=== PATIENT | female | born 1985 | race Caucasian/White ===

== ENCOUNTER 2019-06-14 21:56 | Emergency (ER) | payer MEDICAID ==
[~2019-06-14] VITALS: Ht 160 cm; Wt 69.0 kg
[2019-06-15] MEDS ORDERED: SODIUM CHLORIDE 0.9% 1,000 ML IV ONE (00:57)
[2019-06-15 01:16] LABS: BASOPHILS % 0.8 % (0.0-2.0); HEMATOCRIT. 30.1 % (36.0-48.0); LYMPHOCYTES % 36.9 % (20.0-50.0); MEAN CORPUSCULAR HEMOGLOBIN 29.6 pg (28.0-32.0); MEAN CORPUSCULAR VOLUME 88.9 fL (81.0-99.0); MEAN PLATELET VOLUME 7.4 fl (7.4-10.4); MONOCYTES % 7.6 % (2.0-8.0); NEUTROPHILS % 51.7 % (40.0-76.0); PLATELET 469 x1000/uL (130-400); RED BLOOD CELL COUNT 3.38 mill/uL (4.2-5.4)
[2019-06-15 01:23] LABS: CHLORIDE 110 mEq/L (98-107)
[2019-06-15 01:33] LABS: B-HCG QUANTITATIVE 245 mIU/mL (<3)
[2019-06-15] MEDS ORDERED: ONDANSETRON HCL 4MG/2ML INJ IV ONE (04:15)
[2019-06-15 05:10] VITALS: BP 95/58
== END 2019-06-15 06:17 | disposition home or self-care (01) ==
LOC: ER 22:05
DX: O03.9 Complete or unspecified spontaneous abortion without complication (principal); Z98.890 Other specified postprocedural states
CPT/HCPCS: 36415; 76801; 76817; 80048; 84702; 85025; 86850; 86900; 86901; 96374; 99284; J2405; J7030

== ENCOUNTER 2022-06-05 17:18 | Emergency (ER) | payer BC ==
[~2022-06-05] VITALS: Ht 160 cm; Wt 79.0 kg
[~2022-06-05 17:18] MED LIST: FERR325T6 MT; NORE-126 MT; ONDA4TAB11 PO
[2022-06-05 18:01] VITALS: BP 116/63
[2022-06-05 20:41] LABS: BASOPHILS % 0.8 % (0.0-2.0); HEMATOCRIT. 25.1 % (36.0-48.0); HEMOGLOBIN. 8.6 g/dL (12.0-16.0); LYMPHOCYTES % 23.2 % (20.0-50.0); MEAN CORPUSCULAR HEMOGLOBIN 30.1 pg (28.0-32.0); MEAN CORPUSCULAR VOLUME 88.2 fL (81.0-99.0); MEAN PLATELET VOLUME 6.7 fl (7.4-10.4); PLATELET 421 x1000/uL (130-400); RED BLOOD CELL COUNT 2.85 mill/uL (4.2-5.4); RED CELL DISTRIBUTION WIDTH 15.2 % (11.6-14.6)
[2022-06-05 20:50] LABS: PROTHROMBIN TIME 10.3 sec (9.6-11.0)
[2022-06-05 20:52] LABS: CHLORIDE 107 mEq/L (98-107)
[2022-06-05 21:08] LABS: CLARITY URINE CLEAR (CLEAR); COLOR URINE YELLOW (YELLOW); KETONES URINE TRACE (NEGATIVE); LEUKOCYTE ESTERASE URINE TRACE (NEGATIVE); NITRITE URINE NEGATIVE (NEGATIVE); OCCULT BLOOD URINE 3+ (NEGATIVE); PH URINE 5.5 (4.5-8.0); PROTEIN URINE NEGATIVE (NEGATIVE); SPECIFIC GRAVITY URINE 1.019 (1.005-1.030); UROBILINOGEN URINE 0.2 E.U./dL (0.2-1.0)
[2022-06-05 21:15] LABS: B-HCG QUANTITATIVE 1440 mIU/mL (<3)
[2022-06-05 23:51] LABS: HEMATOCRIT 25.3 % (36.0-48.0); HEMOGLOBIN 8.6 g/dL (12.0-16.0); MEAN CORPUSCULAR HEMOGLOBIN 29.9 pg (28.0-32.0); MEAN CORPUSCULAR VOLUME 88.5 fL (81.0-99.0); PLATELET 413 x1000/uL (130-400); RED BLOOD CELL COUNT 2.86 mill/uL (4.2-5.4)
== END 2022-06-06 00:24 | disposition home or self-care (01) ==
LOC: ER 17:23
DX: N93.8 Other specified abnormal uterine and vaginal bleeding (principal); D64.9 Anemia, unspecified; Z98.890 Other specified postprocedural states
CPT/HCPCS: 36415; 76830; 76856; 80053; 81003; 81025; 84702; 85025; 85027; 86850; 86900; 99284

== ENCOUNTER 2022-06-22 13:21 | Inpatient (IN) | payer BC, MEDICAID ==
[~2022-06-22] VITALS: Ht 160 cm; Wt 82.1 kg
[2022-06-22] MEDS ORDERED: SODIUM CHLORIDE 0.9% 1,000 ML IV ONE (14:15)
[2022-06-22 14:38] LABS: CHLORIDE 108 mEq/L (98-107)
[2022-06-22 14:40] LABS: BASOPHILS % 0.5 % (0.0-2.0); EOSINOPHILS % 1.2 % (0.0-5.0); HEMATOCRIT. 21.3 % (36.0-48.0); LYMPHOCYTES % 14.5 % (20.0-50.0); MEAN CORPUSCULAR HEMOGLOBIN 26.4 pg (28.0-32.0); MEAN CORPUSCULAR VOLUME 82.3 fL (81.0-99.0); MEAN PLATELET VOLUME 6.5 fl (7.4-10.4); MONOCYTES % 5.9 % (2.0-8.0); NEUTROPHILS % 77.9 % (40.0-76.0); PLATELET 384 x1000/uL (130-400); RED BLOOD CELL COUNT 2.59 mill/uL (4.2-5.4); RED CELL DISTRIBUTION WIDTH 16.5 % (11.6-14.6)
[2022-06-22 14:46] LABS: HEMOGLOBIN. 6.8 g/dL (12.0-16.0)
[2022-06-22 14:53] LABS: B-HCG QUANTITATIVE 107 mIU/mL (<3)
[2022-06-22] MEDS ORDERED: PROPOFOL 200MG/20ML VIAL IV ONE (18:16)
[2022-06-22] MEDS ORDERED: LIDOCAINE HCL 1% 10 MG/ML 10ML VIAL ONE (18:17)
[2022-06-22] MEDS ORDERED: ETOMIDATE 2MG/ML 10ML VIAL IV ONE (18:18)
[2022-06-22] MEDS ORDERED: CEFAZOLIN SODIUM 1000MG/VIAL ONE (18:20)
[2022-06-22] MEDS ORDERED: MIDAZOLAM HCL 2 MG/2 ML VIAL ONE (18:21)
[2022-06-22] MEDS ORDERED: SUCCINYLCHOLINE CHLORIDE 200MG/10ML IV ONE (18:22)
[2022-06-22] MEDS ORDERED: FENTANYL CITRATE/PF 50MCG/ML 2ML VIAL ONE (18:28)
[2022-06-22] MEDS ORDERED: PHENYLEPHRINE HCL 10 MG/ML 1ML (IV VIAL) IV ONE (18:28)
[2022-06-22] MEDS ORDERED: IBUP-2029 MT (19:23)
[2022-06-22] MEDS ORDERED: ONDANSETRON HCL 4MG/2ML INJ IV PRN (19:30)
[2022-06-22] MEDS ORDERED: KETOROLAC 30MG/ML VIAL IV NR (19:30)
[2022-06-22] MEDS ORDERED: METRONIDAZOLE 500 MG PREMIX 100 ML IV SCH (20:00)
[2022-06-22 20:45] VITALS: BP 91/45
[2022-06-22] MEDS: FAMOTIDINE 20MG/2ML VIAL IV SCH (21:00)
[2022-06-22 21:45] VITALS: BP 104/52
[2022-06-22 22:45] VITALS: BP 98/57
[2022-06-22] MEDS: IBUPROFEN 600MG TABLET PO PRN (22:54)
[2022-06-22 23:45] VITALS: BP 93/41
[2022-06-23] VITALS: BP 131/61
[2022-06-23 00:42] LABS: HEMATOCRIT. 26.1 % (36.0-48.0); HEMOGLOBIN. 8.7 g/dL (12.0-16.0); MEAN CORPUSCULAR HEMOGLOBIN 27.5 pg (28.0-32.0); MEAN PLATELET VOLUME 6.4 fl (7.4-10.4); PLATELET 333 x1000/uL (130-400); RED BLOOD CELL COUNT 3.15 mill/uL (4.2-5.4); RED CELL DISTRIBUTION WIDTH 16.1 % (11.6-14.6)
[2022-06-23 01:58] LABS: PLATELET ESTIMATE NORMAL
[2022-06-23 08:00] VITALS: BP 83/40
[2022-06-23] MEDS: FAMOTIDINE 20MG/2ML VIAL IV SCH (09:18)
[2022-06-23] MEDS: IBUPROFEN 600MG TABLET PO PRN (09:27)
[2022-06-23 12:00] VITALS: BP 87/38
[2022-06-23 12:19] VITALS: BP 103/52
== END 2022-06-23 14:52 | disposition home or self-care (01) | DRG 543 ==
LOC: ER 13:21 → 6EST 17:23 → ENRESERV 19:51
PROVIDERS: ADMIT Specialist; ATTEND Specialist
PROC: 30233N1 Transfusion of Nonautologous Red Blood Cells into Peripheral Vein, Percutaneous Approach (ICD-10-PCS; principal; 2022-06-22)
PROC: 10D17ZZ Extraction of Products of Conception, Retained, Via Natural or Artificial Opening (ICD-10-PCS; 2022-06-22)
DX: O03.1 Delayed or excessive hemorrhage following incomplete spontaneous abortion (principal); D62 Acute posthemorrhagic anemia; N93.9 Abnormal uterine and vaginal bleeding, unspecified
CPT/HCPCS: 36415; 76830; 76856; 80053; 84702; 85025; 86850; 86900; 86920; 88305; 99285; J0330; J0690; J2250; J2370; J2405; J2704; J3010; J3490; J7030; P9016

== ENCOUNTER 2023-04-05 20:55 | Emergency (ER) | payer BC ==
[~2023-04-05] VITALS: Ht 160 cm; Wt 77.8 kg
[~2023-04-05 20:55] MED LIST changes: +IBUP-2029 MT; -NORE-126 MT; -ONDA4TAB11 PO
[2023-04-05 21:01] VITALS: BP 127/74; PULSE 77; RESP 16; TEMP 98.4; O2SAT 98
[2023-04-05 22:34] LABS: CLARITY URINE CLOUDY (CLEAR); COLOR URINE YELLOW (YELLOW); GLUCOSE URINE NEGATIVE (NEGATIVE); KETONES URINE NEGATIVE (NEGATIVE); LEUKOCYTE ESTERASE URINE TRACE (NEGATIVE); NITRITE URINE NEGATIVE (NEGATIVE); OCCULT BLOOD URINE NEGATIVE (NEGATIVE); PH URINE 5.5 (4.5-8.0); PROTEIN URINE NEGATIVE (NEGATIVE)
[2023-04-05 22:37] LABS: UCG SCREEN NEGATIVE
[2023-04-05 22:39] LABS: BASOPHILS % 0.7 % (0.0-2.0); EOSINOPHILS % 2.9 % (0.0-5.0); HEMOGLOBIN. 13.3 g/dL (12.0-16.0); LYMPHOCYTES % 29.5 % (20.0-50.0); MEAN CORPUSCULAR HEMOGLOBIN 28.4 pg (28.0-32.0); MEAN CORPUSCULAR HGB CONC 33.4 g/dL (31.0-37.0); MEAN PLATELET VOLUME 7.6 fl (7.4-10.4); MONOCYTES % 9.4 % (2.0-8.0); NEUTROPHILS % 57.5 % (40.0-76.0); PLATELET 339 x1000/uL (130-400); WHITE BLOOD COUNT 7.2 x1000/uL (4.5-11.0)
[2023-04-05 22:48] LABS: CHLORIDE 106 mEq/L (98-107); INDEX HEMOLYSI 1 (1-3); INDEX ICTERIC 1 (1-4); INDEX LIPEMIC 1 (1-3); SODIUM 137 mEq/L (136-145)
[2023-04-05 22:55] LABS: ALANINE AMINOTRANSFERASE 43 IU/L (13-61); ALBUMIN 3.8 g/dL (3.4-5.0); CALCIUM 8.7 mg/dL (8.5-10.1); CARBON DIOXIDE 27 mEq/L (21-32); GLUCOSE 84 mg/dL (70-105); UREA NITROGEN BLOOD 12 mg/dL (7-21)
[2023-04-05 22:58] LABS: ASPARTATE AMINOTRANSFERASE 28 IU/L (15-37); BILIRUBIN TOTAL 0.5 mg/dL (0.1-1.0); CREATININE 0.7 mg/dL (0.6-1.3); PROTEIN TOTAL 7.7 g/dL (6.0-8.3)
[2023-04-05 23:11] LABS: MUCUS URINE 2+ /lpf (< = 2+); SQUAMOUS EPITHELIAL CELL URINE 3+ /lpf (RARE/1+)
[2023-04-05 23:12] LABS: BACTERIA URINE 3+; RBC URINE 0-2 /hpf (0-2)
[2023-04-06 00:32] LABS: HCG SCREEN NEGATIVE
== END 2023-04-06 07:33 | disposition home or self-care (01) ==
LOC: ER 21:19
DX: K59.00 Constipation, unspecified (principal); F19.90 Other psychoactive substance use, unspecified, uncomplicated; Z98.890 Other specified postprocedural states
CPT/HCPCS: 36415; 74176; 80053; 81003; 81025; 84703; 85025; 99284

== ENCOUNTER 2023-11-06 12:19 | Emergency (ER) | payer BC, MEDICAID ==
[~2023-11-06] VITALS: Ht 160 cm; Wt 72.0 kg
[2023-11-06 12:21] VITALS: O2SAT 99
[2023-11-06 13:10] LABS: BASOPHILS % 0.5 % (0.0-2.0); EOSINOPHILS % 0.9 % (0.0-5.0); HEMATOCRIT. 40.4 % (36.0-48.0); HEMOGLOBIN. 13.3 g/dL (12.0-16.0); LYMPHOCYTES % 18.4 % (20.0-50.0); MEAN CORPUSCULAR HEMOGLOBIN 29.5 pg (28.0-32.0); MEAN CORPUSCULAR HGB CONC 32.9 g/dL (31.0-37.0); MEAN CORPUSCULAR VOLUME 89.7 fL (81.0-99.0); MEAN PLATELET VOLUME 7.2 fl (7.4-10.4); NEUTROPHILS % 73.2 % (40.0-76.0); PLATELET 330 x1000/uL (130-400); RED BLOOD CELL COUNT 4.51 mill/uL (4.2-5.4); RED CELL DISTRIBUTION WIDTH 14.5 % (11.6-14.6); WHITE BLOOD COUNT 5.6 x1000/uL (4.5-11.0)
[2023-11-06 13:15] LABS: CHLORIDE 108 mEq/L (98-107); POTASSIUM 3.7 mEq/L (3.5-5.1); SODIUM 140 mEq/L (136-145)
[2023-11-06 13:16] LABS: CARBON DIOXIDE 27 mEq/L (21-32)
[2023-11-06 13:17] LABS: CALCIUM 9.6 mg/dL (8.7-10.4)
[2023-11-06 13:18] LABS: HCG SCREEN NEGATIVE
[2023-11-06 13:20] LABS: PROTHROMBIN TIME 10.9 sec (9.6-11.0)
[2023-11-06 13:21] LABS: CREATININE 0.6 mg/dL (0.6-1.0); GLUCOSE 91 mg/dL (70-105); UREA NITROGEN BLOOD 6 mg/dL (9-23)
[2023-11-06] MEDS: SODIUM CHLORIDE 0.9% 1,000 ML IV ONE (13:31)
[2023-11-06] MEDS: ONDANSETRON HCL 4MG/2ML INJ IV STA (13:31)
[2023-11-06] MEDS: KETOROLAC 30MG/ML VIAL IV STA (14:01)
[2023-11-06 14:16] LABS: ALANINE AMINOTRANSFERASE 28 IU/L (10-49); ALBUMIN 4.4 g/dL (3.2-4.8); ASPARTATE AMINOTRANSFERASE 27 IU/L (<34); BILIRUBIN DIRECT 0.1 mg/dL (<=3.0); BILIRUBIN TOTAL 0.5 mg/dL (0.1-1.0); PROTEIN TOTAL 6.9 g/dL (6.0-8.3)
[2023-11-06 14:58] LABS: CLARITY URINE CLEAR (CLEAR); COLOR URINE YELLOW (YELLOW); GLUCOSE URINE NEGATIVE (NEGATIVE); KETONES URINE NEGATIVE (NEGATIVE); LEUKOCYTE ESTERASE URINE NEGATIVE (NEGATIVE); NITRITE URINE NEGATIVE (NEGATIVE); OCCULT BLOOD URINE NEGATIVE (NEGATIVE); PH URINE 7.5 (4.5-8.0); PROTEIN URINE NEGATIVE (NEGATIVE); SPECIFIC GRAVITY URINE 1.005 (1.005-1.030); UROBILINOGEN URINE 0.2 E.U./dL (0.2-1.0)
[2023-11-06] MEDS ORDERED: IBUP-2028 MT (15:14)
[2023-11-06] MEDS ORDERED: ONDA4TAB50 MT (15:14)
[2023-11-06 15:24] VITALS: BP 129/79; PULSE 71; RESP 15; TEMP 98.2
== END 2023-11-06 16:07 | disposition home or self-care (01) ==
LOC: ER 13:15
DX: R51.9 Headache, unspecified (principal)
CPT/HCPCS: 80076; 80048; 81003; 84703; 83690; 85025; 85610; 36415; 70450; 96374; 96375; 99285; J1885; J2405; J7030; Z7610 ×5